=== PATIENT | male | born 1955 | race Caucasian/White ===

== ENCOUNTER 2017-08-19 20:32 | Inpatient (IN) | payer MEDICARE, OTHER ==
[~2017-08-19] VITALS: Ht 180.3 cm; Wt 76.2 kg
--- NOTE | 2017-08-19 20:46 | NUR ---
Patient BIB private ambulance from [facility] for Medical Clearance and GPS Admission. Patient arrives on 5150 hold for DTS. Per hold, Patient has been laying in bed for approximately 2 weeks without eating and has reportedly lost 34 lbs. Patient states that he gets depressed around the holidays due to previous loss of family members. To room 3A, BLANKA performed MSE.
[2017-08-19] MEDS ORDERED: DIVA500T7 PO (20:51)
[2017-08-19] MEDS ORDERED: CLON1TAB4 PO (20:51)
[2017-08-19] MEDS ORDERED: IBUP-1955 PO (20:51)
[2017-08-19] MEDS ORDERED: BUSP10TA3 PO (20:51)
[2017-08-19] MEDS ORDERED: CIPR-262 PO (20:51)
[2017-08-19] MEDS ORDERED: POTA-88 PO (20:54)
[2017-08-19] MEDS ORDERED: OMEP20TA5 PO (20:54)
[2017-08-19] MEDS ORDERED: PROP20TA7 PO (20:54)
[2017-08-19] MEDS ORDERED: METF500T4 PO (20:54)
[2017-08-19] MEDS ORDERED: SIMV10TA6 PO (20:54)
[2017-08-19] MEDS ORDERED: QUET400T3 PO (20:54)
[2017-08-19] MEDS ORDERED: TOPI100T PO (20:54)
--- NOTE | 2017-08-19 21:08 | NUR ---
Patient Medically Cleared per ERMD.
--- NOTE | 2017-08-19 21:17 | NUR ---
Pt. admitted to GPS, under care of Dr. Valenzuela Belongs List completed
[2017-08-19] MEDS ORDERED: MAGNESIUM HYDROXIDE 30 ML LIQUID UDC PO PRN (22:15)
[2017-08-19] MEDS ORDERED: MAG HYDROX/AL HYDROX/SIMETH 30 ML LIQUID UDC PO PRN (22:15)
[2017-08-19] MEDS ORDERED: CLONAZEPAM 0.5 MG TABLET PO PRN (22:15)
[2017-08-19] MEDS ORDERED: TEMAZEPAM 7.5 MG CAPSULE PO PRN (22:15)
--- NOTE | 2017-08-20 00:09 | NUR ---
PATIENT RECEIVED FROM ER VIA [facility] AT 2130. PATIENT ALERT/ORIENTED X 2-3. PATIENT HAS FLAT AFFECT, DEPRESSED, AND ANXIOUS. PATIENT IS WILLING AND WANTING HELP "THANK YOU SOPHIE FOR TAKING ME, I NEED HELP. I GET DEPRESSED THIS TIME EVERY YEAR, FOR THE PAST 3 YEARS SINCE MY MOTHER AND SISTER ." PATIENT HAS BEEN IN BED FOR 2 WEEKS NOT EATING. PATIENT STATED LOSING 30LBS. ACCUCHECK RENDERED 95MG/DL PATIENT ATE TUNA SANDWICH AND BOTTLE WATER. SKIN CHECK RENDERED, SKIN INTACT. PATIENT AMBULATES, HOWEVER IS WEAK WITH UNSTEADY GAIT, PT ORDERED. CONTINENT OF BOWEL AND BLADDER. ORIENTED PATIENT TO ROOM AND RESTROOM, REQUIRES RE-ORIENTATION. PATIENT ABLE TO SIGN ADMISSION PAPERS. PATIENT RIGHT'S HANDBOOK AND ADVISEMENT GIVEN TO PATIENT AT BEDSIDE. BED IN LOWEST POSITION, BED LOCKED, AND BED ALARM ON WHILE IN BED. PATIENT ENCOURAGED TO EXPRESS FEELINGS AND CONCERNS. ENCOURAGED TO ATTEND GROUP ACTIVITIES "YES, I AGREE." DR. SIMENTAL NOTIFIED OF ADMISSION, AND NOTIFIED OF ADMISSION.
[2017-08-20 07:30] VITALS: BP 106/57
[2017-08-20 07:59] LABS: BASOPHILS % (AUTO) 0.6 % (0.0-2.0); EOSINOPHILS # (AUTO) 0.1 K/uL (0.0-0.7); EOSINOPHILS % (AUTO) 2.3 % (0.0-7.0); HEMATOCRIT 36.5 % (40-50); HEMOGLOBIN 12.5 G/DL (14.0-18.0); LYMPHOCYTES # (AUTO) 1.3 K/UL (0.8-4.8); LYMPHOCYTES % (AUTO) 25.9 % (20.5-51.5); MEAN CORPUSCULAR HEMOGLOBIN 33.5 UUG (27.0-31.0); MEAN CORPUSCULAR HGB CONC 34 g/dL (32.0-37.0); MEAN CORPUSCULAR VOLUME 97.6 FL (82.0-92.0); MONOCYTES # (AUTO) 0.5 K/UL (0.1-1.30); MONOCYTES % (AUTO) 9.5 % (0.0-11.0); NEUTROPHILS # (AUTO) 3.1 K/UL (1.8-8.9); NEUTROPHILS % (AUTO) 61.7 % (38.5-71.5); PLATELET COUNT (AUTO) 237 K/UL (150-450); RED BLOOD CELL COUNT(AUTO) 3.73 MIL/UL (4.7-6.1)
[2017-08-20 08:41] LABS: BILIRUBIN,TOTAL 0.3 mg/dL (0.2-1.0); CREATININE 1.1 mg/dL (0.6-1.3); MAGNESIUM 1.8 mg/dL (1.8-2.4); PHOSPHOROUS 3.3 mg/dL (2.5-4.9); POTASSIUM 3.4 mmol/L (3.5-5.1); TOTAL PROTEIN, SERUM 8.1 g/dL (6.4-8.2)
[2017-08-20 08:46] LABS: THYROID STIMULATING HORMONE 1.916 mIU/mL (0.358-3.740)
[2017-08-20] MEDS: METFORMIN HCL 500 MG TABLET PO SCH ×2 (08:54→17:08)
[2017-08-20] MEDS ORDERED: DIVALPROEX 500 MG TABLET.DR PO SCH (09:00)
[2017-08-20] MEDS ORDERED: POTASSIUM CHLORIDE 20 MEQ TAB.PRT.SR PO ONE (09:30)
--- NOTE | 2017-08-20 10:07 | NUR ---
Enterprise Sales Executive: OLI completed and submitted [employer] Report on 08/20/17.
[2017-08-20] MEDS: BLOOD SUGAR DIAGNOSTIC 1 EACH STRIP VI SCH (16:28)
[2017-08-20] MEDS: QUETIAPINE FUMARATE 200 MG TABLET PO SCH (16:30)
[2017-08-20] MEDS: DIVALPROEX 500 MG TABLET.DR PO SCH (16:30)
[2017-08-20 17:18] VITALS: BP 108/76
[2017-08-20] MEDS: PROPRANOLOL HCL 20 MG TABLET PO SCH (20:24)
[2017-08-20] MEDS: SIMVASTATIN 10 MG TABLET PO SCH (20:25)
[2017-08-20] MEDS: TOPIRAMATE 100 MG TABLET PO SCH (20:26)
[2017-08-20] MEDS ORDERED: TOPIRAMATE 100 MG TABLET PO SCH (21:00)
[2017-08-20 21:22] VITALS: BP 104/78
--- NOTE | 2017-08-20 22:00 | NUR ---
received to care, watching tv with peers, pleasant upon approach. interacts minimally with peers. able to make his needs known. compliant with medications and staff direction. denies SI, but admits to feeling depressed. as of 2199, he appears to be asleep. no distress noted. will continue to monitor closely.
--- NOTE | 2017-08-21 06:00 | NUR ---
slept 7.5 hours total.
[2017-08-21] MEDS: BLOOD SUGAR DIAGNOSTIC 1 EACH STRIP VI SCH ×2 (06:25→16:39)
[2017-08-21 07:45] VITALS: BP 98/57
[2017-08-21 08:16] LABS: IRON, SERUM 61 ug/dL (50-175)
[2017-08-21] MEDS: DIVALPROEX 500 MG TABLET.DR PO SCH ×3 (08:35→16:39)
[2017-08-21] MEDS: QUETIAPINE FUMARATE 200 MG TABLET PO SCH ×2 (08:35→16:39)
[2017-08-21] MEDS: TOPIRAMATE 100 MG TABLET PO SCH ×2 (08:35→20:06)
[2017-08-21] MEDS: METFORMIN HCL 500 MG TABLET PO SCH ×2 (08:35→17:00)
[2017-08-21 12:05] LABS: *BLOOD, URINE NEGATIVE (NEGATIVE); *COLOR,URINE YELLOW (YELLOW); *KETONES,URINE TRACE (NEGATIVE); *PROTEIN,URINE TRACE (NEGATIVE); LEUKOCYTE ESTERASE ,URINE TRACE (NEGATIVE); NITRITE, URINE NEGATIVE (NEGATIVE); UGLUCOSE NEGATIVE (NEGATIVE)
--- NOTE | 2017-08-21 13:47 | NUR ---
Initial Discharge Instructions: Pt resides at home alone [[address] [place] [address];[phone]]. Per pt he would like to return there upon discharge. Spoke with Rosemarie at Support Services who would like to be involved in treatment planning. SW will speak with pt, disease case manager, and MD regarding appropriate discharge plans. SW will form a safe and proper discharge.
[2017-08-21 13:50] LABS: *BILIRUBIN,URIN 1+ (NEGATIVE); *CLARITY,URINE HAZY (CLEAR)
[2017-08-21 13:51] LABS: BACTERIA,URINE NONE SEEN /HPF (NONE SEEN); SQUAMOUS EPITHELIAL CELL,UR FEW /HPF (NONE SEEN); WBC,URINE 20-50 /HPF (0-3)
[2017-08-21 13:52] LABS: MUCUS,URINE MODERATE /LPF (0-FEW); SPERM,URINE PRESENT /HPF (NONE SEEN)
[2017-08-21 16:14] VITALS: BP 94/67
[2017-08-21] MEDS: busPIRone 10 MG TABLET PO SCH ×2 (16:39→20:06)
--- NOTE | 2017-08-21 17:07 | NUR ---
UA RESULT RELAY TO DR. MAHER.
[2017-08-21] MEDS: ACETAMINOPHEN 325 MG TABLET PO PRN (20:05)
[2017-08-21] MEDS: NITROFURANTOIN/NITROFURAN MAC 100 MG CAPSULE PO SCH (20:07)
[2017-08-21] MEDS: SIMVASTATIN 10 MG TABLET PO SCH (20:09)
[2017-08-21] MEDS: PROPRANOLOL HCL 20 MG TABLET PO SCH (20:12)
[2017-08-21 20:15] VITALS: BP 92/63
[2017-08-22] MEDS: BLOOD SUGAR DIAGNOSTIC 1 EACH STRIP VI SCH ×2 (06:45→16:35)
[2017-08-22 07:30] VITALS: BP 104/69
[2017-08-22] MEDS: QUETIAPINE FUMARATE 200 MG TABLET PO SCH ×2 (08:21→17:17)
[2017-08-22] MEDS: TOPIRAMATE 100 MG TABLET PO SCH ×2 (08:21→20:42)
[2017-08-22] MEDS: METFORMIN HCL 500 MG TABLET PO SCH ×2 (08:21→17:17)
[2017-08-22] MEDS: NITROFURANTOIN/NITROFURAN MAC 100 MG CAPSULE PO SCH ×2 (08:22→20:42)
[2017-08-22] MEDS: DIVALPROEX 500 MG TABLET.DR PO SCH ×3 (08:22→17:16)
[2017-08-22] MEDS: busPIRone 10 MG TABLET PO SCH ×4 (08:22→20:42)
[2017-08-22 13:00] VITALS: BP 96/68
[2017-08-22] MEDS: ACETAMINOPHEN 325 MG TABLET PO PRN (19:57)
[2017-08-22 20:27] VITALS: BP 101/68
[2017-08-22] MEDS: SIMVASTATIN 10 MG TABLET PO SCH (20:42)
[2017-08-22] MEDS: PROPRANOLOL HCL 20 MG TABLET PO SCH (20:52)
--- NOTE | 2017-08-23 06:00 | NUR ---
slept 7.0 hours total.
[2017-08-23 07:30] VITALS: BP 109/68
[2017-08-23] MEDS: NITROFURANTOIN/NITROFURAN MAC 100 MG CAPSULE PO SCH ×2 (08:11→20:54)
[2017-08-23] MEDS: TOPIRAMATE 100 MG TABLET PO SCH ×2 (08:11→20:54)
[2017-08-23] MEDS: DIVALPROEX 500 MG TABLET.DR PO SCH ×3 (08:11→16:28)
[2017-08-23] MEDS: QUETIAPINE FUMARATE 200 MG TABLET PO SCH ×2 (08:11→16:28)
[2017-08-23] MEDS: busPIRone 10 MG TABLET PO SCH ×4 (08:11→20:54)
[2017-08-23] MEDS: METFORMIN HCL 500 MG TABLET PO SCH (09:15)
[2017-08-23 15:22] VITALS: BP 80/55
--- NOTE | 2017-08-23 17:45 | NUR ---
Gps/Dynamic Balancer- Stayed in the TV room most of the afternoon, interacting with his peers.Cooperative with staff providing care.
[2017-08-23] MEDS: SIMVASTATIN 10 MG TABLET PO SCH (20:54)
[2017-08-24 07:30] VITALS: BP 97/69
[2017-08-24] MEDS: QUETIAPINE FUMARATE 200 MG TABLET PO SCH ×2 (08:07→16:21)
[2017-08-24] MEDS: NITROFURANTOIN/NITROFURAN MAC 100 MG CAPSULE PO SCH (08:07)
[2017-08-24] MEDS: METFORMIN HCL 500 MG TABLET PO SCH (08:07)
[2017-08-24] MEDS: DIVALPROEX 500 MG TABLET.DR PO SCH ×3 (08:07→16:21)
[2017-08-24] MEDS: TOPIRAMATE 100 MG TABLET PO SCH ×2 (08:07→20:35)
[2017-08-24] MEDS: busPIRone 10 MG TABLET PO SCH ×4 (08:08→20:35)
[2017-08-24 15:00] VITALS: BP 106/79
[2017-08-24 20:22] VITALS: BP 99/70
[2017-08-24] MEDS: SIMVASTATIN 10 MG TABLET PO SCH (20:34)
[2017-08-24] MEDS: ACETAMINOPHEN 325 MG TABLET PO PRN (20:55)
[2017-08-25 07:30] VITALS: BP 114/74
[2017-08-25] MEDS: DIVALPROEX 500 MG TABLET.DR PO SCH ×3 (08:10→18:37)
[2017-08-25] MEDS: METFORMIN HCL 500 MG TABLET PO SCH (08:10)
[2017-08-25] MEDS: QUETIAPINE FUMARATE 200 MG TABLET PO SCH ×2 (08:10→18:35)
[2017-08-25] MEDS: busPIRone 10 MG TABLET PO SCH ×4 (08:10→20:11)
[2017-08-25] MEDS: TOPIRAMATE 100 MG TABLET PO SCH ×2 (08:10→20:11)
[2017-08-25 08:17] LABS: BASOPHILS % (AUTO) 0.8 % (0.0-2.0); EOSINOPHILS # (AUTO) 0.1 K/uL (0.0-0.7); HEMATOCRIT 30.1 % (40-50); HEMOGLOBIN 10.1 G/DL (14.0-18.0); LYMPHOCYTES # (AUTO) 1.6 K/UL (0.8-4.8); LYMPHOCYTES % (AUTO) 45.6 % (20.5-51.5); MEAN CORPUSCULAR HEMOGLOBIN 33.4 UUG (27.0-31.0); MEAN CORPUSCULAR HGB CONC 34 g/dL (32.0-37.0); MEAN CORPUSCULAR VOLUME 99.3 FL (82.0-92.0); MONOCYTES # (AUTO) 0.4 K/UL (0.1-1.30); MONOCYTES % (AUTO) 12.9 % (0.0-11.0); NEUTROPHILS # (AUTO) 1.3 K/UL (1.8-8.9); NEUTROPHILS % (AUTO) 37.7 % (38.5-71.5); PLATELET COUNT (AUTO) 153 K/UL (150-450); RED BLOOD CELL COUNT(AUTO) 3.03 MIL/UL (4.7-6.1); WHITE BLOOD COUNT (AUTO) 3.4 K/UL (4.0-11.2)
[2017-08-25 08:40] LABS: ALANINE AMINOTRANSFERASE 10 U/L (16-63); ALKALINE PHOSPHATASE 42 U/L (50-136); ASPARTATE AMINOTRANSFERASE < 5 U/L (15-37); BILIRUBIN,TOTAL 0.3 mg/dL (0.2-1.0); CARBON DIOXIDE 23 mmol/L (21-32); CHLORIDE 108 mmol/L (98-107); GLUCOSE 84 mg/dL (74-106); MAGNESIUM 1.9 mg/dL (1.8-2.4); PHOSPHOROUS 2.9 mg/dL (2.5-4.9); POTASSIUM 3.2 mmol/L (3.5-5.1); TOTAL PROTEIN, SERUM 6.7 g/dL (6.4-8.2); UREA NITROGEN, BLOOD 27 mg/dL (7-18)
[2017-08-25] MEDS ORDERED: POTASSIUM CHLORIDE 20 MEQ TAB.PRT.SR PO ONE (10:30)
[2017-08-25 10:38] LABS: EOSINOPHILS % (MANUAL) 3 % (0-8); LYMPHOCYTES % (MANUAL) 44 % (20-40); MONOCYTES % (MANUAL) 10 % (2-10); NEUTROPHILS % (MANUAL) 43 % (42-75)
[2017-08-25 10:55] LABS: IRON, SERUM 116 ug/dL (50-175)
--- NOTE | 2017-08-25 15:46 | NUR ---
Gps/Substation Operator Apprentice- B/P / HR 88, patient remains in the TV room, denies any dizziness,adequate fluids, refused to go to bed to rest, claimed he is doing just fine sitting up.Safety emphasized, continue to monitor.
--- NOTE | 2017-08-25 17:00 | NUR ---
gps/locomotive oiler- B/P rechecked HR 83 02 sat 96% on room air, asymtomatic, patient denies any dizziness, denies weakness, preferred to stay up on his chair till after dinner. Adequate fluid intake. Refused to go to bed, and have his legs elevated.Will continue to monitor b/p
--- NOTE | 2017-08-25 18:27 | NUR ---
gps/Industrial Recruiter- B/p rechecked 98/74 HR 85 RA.02 sat 96% denies any discomfort.Will continue to assess v/s
[2017-08-25 18:28] VITALS: BP 98/74
[2017-08-25 20:08] VITALS: BP 127/83
[2017-08-25] MEDS: SIMVASTATIN 10 MG TABLET PO SCH (20:11)
[2017-08-25] MEDS: ACETAMINOPHEN 325 MG TABLET PO PRN (20:26)
[2017-08-26] MEDS: BLOOD SUGAR DIAGNOSTIC 1 EACH STRIP VI SCH (06:22)
[2017-08-26 07:30] VITALS: BP 101/67
[2017-08-26] MEDS: METFORMIN HCL 500 MG TABLET PO SCH (09:13)
[2017-08-26] MEDS: busPIRone 10 MG TABLET PO SCH ×4 (09:13→20:40)
[2017-08-26] MEDS: QUETIAPINE FUMARATE 200 MG TABLET PO SCH ×2 (09:13→16:52)
[2017-08-26] MEDS: DIVALPROEX 500 MG TABLET.DR PO SCH ×3 (09:13→16:52)
[2017-08-26] MEDS: TOPIRAMATE 100 MG TABLET PO SCH ×2 (09:13→20:40)
[2017-08-26 15:27] VITALS: BP 90/69
--- NOTE | 2017-08-26 17:25 | NUR ---
Gpg/Eyelet Row Marker- Remains in the TV room interacting fairly well with his peers. Denies any discomfort at this time.had been mediciation compliance. Pedal edema still noted, encouraged to elevate lower ext. Pedal pulses palpable.Denies pain at this time.No BM noted, claimed he takes dulcolax tab. at home as needed, Dr Castellanos texted.
[2017-08-26] MEDS ORDERED: BISACODYL 5 MG TABLET.DR PO PRN (18:30)
[2017-08-26 20:19] VITALS: BP 92/69
[2017-08-26 20:35] VITALS: BP 105/68
[2017-08-26] MEDS: SIMVASTATIN 10 MG TABLET PO SCH (20:40)
[2017-08-27] MEDS: BLOOD SUGAR DIAGNOSTIC 1 EACH STRIP VI SCH (06:39)
--- NOTE | 2017-08-27 06:50 | NUR ---
GPS: REMAIN CALM AND COOERATIVE WITH MEDICATION AND CARE. SLEPT 06:30HRS THROUGH THE NIGHT. BLOOD SUGAR 82 MG/DL THIS AM. CONTINUE PLAN OF CARE.
[2017-08-27 07:30] VITALS: BP 120/76
[2017-08-27] MEDS: QUETIAPINE FUMARATE 200 MG TABLET PO SCH ×2 (09:12→17:14)
[2017-08-27] MEDS: METFORMIN HCL 500 MG TABLET PO SCH (09:12)
[2017-08-27] MEDS: busPIRone 10 MG TABLET PO SCH ×4 (09:12→20:19)
[2017-08-27] MEDS: DIVALPROEX 500 MG TABLET.DR PO SCH ×3 (09:12→17:14)
[2017-08-27] MEDS: TOPIRAMATE 100 MG TABLET PO SCH ×2 (09:12→20:19)
--- NOTE | 2017-08-27 09:30 | NUR ---
Pt received sitting in day room eating breakfast. Pt denies any SI/HI at this time. Cooperative and compliant with medications. Depressed mood. Comfort measures provided.
--- NOTE | 2017-08-27 14:45 | NUR ---
Patient spending most of time in day room watching TV. Pleasant upon approach. compliant with medications. No acute distress noted.
[2017-08-27] MEDS ORDERED: QUETIAPINE FUMARATE 200 MG TABLET PO SCH (17:00)
[2017-08-27 17:13] VITALS: BP 115/68
[2017-08-27] MEDS: QUETIAPINE FUMARATE 25 MG TABLET PO SCH (17:14)
[2017-08-27] MEDS: SIMVASTATIN 10 MG TABLET PO SCH (20:19)
[2017-08-27 20:28] VITALS: BP 116/74
--- NOTE | 2017-08-27 22:01 | NUR ---
PATIENT RECEIVED IN ACTIVITIES ROOM WATCHING T.V INTERACTING WITH STAFF AND PEERS. PATIENT CALM AND PLEASANT UPON APPROACH. PATIENT DENIES SI WILL CONTINUE TO MONITOR, ENCOURAGED PATIENT TO EXPRESS FEELINGS AND CONCERNS. PATIENT COMPLAINT WITH MEDICATION. NO AGGRESSIVE OR COMBATIVE BEHAVIOR NOTED WILL CONTINUE TO MONITOR. PATIENT IN NO APPARENT DISTRESS.
[2017-08-28] MEDS: BLOOD SUGAR DIAGNOSTIC 1 EACH STRIP VI SCH (06:33)
[2017-08-28 07:30] VITALS: BP 110/75
[2017-08-28] MEDS: QUETIAPINE FUMARATE 200 MG TABLET PO SCH ×2 (08:36→17:59)
[2017-08-28] MEDS: QUETIAPINE FUMARATE 25 MG TABLET PO SCH ×2 (08:36→17:58)
[2017-08-28] MEDS: busPIRone 10 MG TABLET PO SCH ×4 (08:36→20:04)
[2017-08-28] MEDS: DIVALPROEX 500 MG TABLET.DR PO SCH ×3 (08:36→17:59)
[2017-08-28] MEDS: METFORMIN HCL 500 MG TABLET PO SCH (08:36)
[2017-08-28] MEDS: TOPIRAMATE 100 MG TABLET PO SCH ×2 (08:36→20:04)
[2017-08-28 15:42] VITALS: BP 91/62
[2017-08-28 19:52] VITALS: BP_SYST 119; BP_SYST 94; BP_DIAS 65; BP_DIAS 81
[2017-08-28] MEDS: ACETAMINOPHEN 325 MG TABLET PO PRN (19:54)
[2017-08-28] MEDS: SIMVASTATIN 10 MG TABLET PO SCH (20:04)
[2017-08-28] MEDS ORDERED: DIVALPROEX 250 MG TABLET.DR PO ONE (22:15)
[2017-08-29] MEDS: BLOOD SUGAR DIAGNOSTIC 1 EACH STRIP VI SCH (06:27)
[2017-08-29 07:02] LABS: CREATININE 1.1 mg/dL (0.6-1.3); POTASSIUM 3.9 mmol/L (3.5-5.1)
[2017-08-29 07:30] VITALS: BP 113/72
[2017-08-29 07:48] LABS: EOSINOPHILS # (AUTO) 0.1 K/uL (0.0-0.7); EOSINOPHILS % (AUTO) 2.5 % (0.0-7.0); HEMOGLOBIN 10.7 g/dL (12.5-16.3); LYMPHOCYTES # (AUTO) 1.4 K/uL (20.0-40.0); LYMPHOCYTES % (AUTO) 41.1 % (20.5-51.5); MEAN CORPUSCULAR HEMOGLOBIN 34.5 uug (23.8-33.4); MEAN CORPUSCULAR HGB CONC 35 g/dL (32.5-36.3); MEAN CORPUSCULAR VOLUME 100.1 fL (73.0-96.2); MONOCYTES # (AUTO) 0.5 K/uL (2.0-10.0); MONOCYTES % (AUTO) 13.8 % (0.0-11.0); NEUTROPHILS # (AUTO) 1.4 K/uL (1.8-8.9); NEUTROPHILS % (AUTO) 41.6 % (38.5-71.5); PLATELET COUNT (AUTO) 150 K/uL (152-348); RED BLOOD CELL COUNT(AUTO) 3.09 MIL/uL (4.06-5.63); WHITE BLOOD COUNT (AUTO) 3.4 K/uL (3.6-10.2)
[2017-08-29] MEDS: QUETIAPINE FUMARATE 25 MG TABLET PO SCH (08:40)
[2017-08-29] MEDS: DIVALPROEX 500 MG TABLET.DR PO SCH ×2 (08:40→12:44)
[2017-08-29] MEDS: TOPIRAMATE 100 MG TABLET PO SCH ×2 (08:40→20:14)
[2017-08-29] MEDS: busPIRone 10 MG TABLET PO SCH ×4 (08:40→20:14)
[2017-08-29] MEDS: METFORMIN HCL 500 MG TABLET PO SCH (08:40)
[2017-08-29] MEDS: QUETIAPINE FUMARATE 200 MG TABLET PO SCH ×2 (08:40→20:14)
[2017-08-29 16:00] VITALS: BP 105/71
[2017-08-29] MEDS: QUETIAPINE FUMARATE 100 MG TABLET PO SCH (17:23)
[2017-08-29] MEDS: SIMVASTATIN 10 MG TABLET PO SCH (20:14)
[2017-08-29] MEDS: DIVALPROEX 250 MG TABLET.DR PO SCH (20:14)
[2017-08-29 20:20] VITALS: BP 111/71
[2017-08-30] MEDS: BLOOD SUGAR DIAGNOSTIC 1 EACH STRIP VI SCH (06:32)
[2017-08-30 07:30] VITALS: BP 116/83
[2017-08-30] MEDS ORDERED: QUETIAPINE FUMARATE 25 MG TABLET PO SCH (08:00)
[2017-08-30] MEDS: busPIRone 10 MG TABLET PO SCH ×4 (08:21→21:08)
[2017-08-30] MEDS: TOPIRAMATE 100 MG TABLET PO SCH ×2 (08:21→21:08)
[2017-08-30] MEDS: QUETIAPINE FUMARATE 100 MG TABLET PO SCH ×2 (08:21→16:59)
[2017-08-30] MEDS: DIVALPROEX 500 MG TABLET.DR PO SCH ×2 (08:23→12:24)
[2017-08-30] MEDS: METFORMIN HCL 500 MG TABLET PO SCH (08:23)
[2017-08-30 16:00] VITALS: BP 98/71
[2017-08-30] MEDS: SIMVASTATIN 10 MG TABLET PO SCH (21:08)
[2017-08-30] MEDS: DIVALPROEX 250 MG TABLET.DR PO SCH (21:08)
[2017-08-30] MEDS: QUETIAPINE FUMARATE 200 MG TABLET PO SCH (21:09)
[2017-08-30 21:27] VITALS: BP 110/74
[2017-08-31] MEDS: BLOOD SUGAR DIAGNOSTIC 1 EACH STRIP VI SCH (06:25)
[2017-08-31 07:30] VITALS: BP 126/79
[2017-08-31 07:38] LABS: BASOPHILS % (AUTO) 0.9 % (0.0-2.0); BILIRUBIN,TOTAL 0.4 mg/dL (0.2-1.0); EOSINOPHILS # (AUTO) 0.1 K/uL (0.0-0.7); EOSINOPHILS % (AUTO) 2.4 % (0.0-7.0); HEMATOCRIT 30.6 % (36.7-47.1); HEMOGLOBIN 10.5 g/dL (12.5-16.3); LYMPHOCYTES # (AUTO) 1.7 K/uL (20.0-40.0); LYMPHOCYTES % (AUTO) 43.9 % (20.5-51.5); MEAN CORPUSCULAR HEMOGLOBIN 34.4 uug (23.8-33.4); MEAN CORPUSCULAR HGB CONC 34 g/dL (32.5-36.3); MEAN CORPUSCULAR VOLUME 100.2 fL (73.0-96.2); MONOCYTES # (AUTO) 0.4 K/uL (2.0-10.0); MONOCYTES % (AUTO) 11.3 % (0.0-11.0); NEUTROPHILS # (AUTO) 1.6 K/uL (1.8-8.9); NEUTROPHILS % (AUTO) 41.5 % (38.5-71.5); PLATELET COUNT (AUTO) 149 K/uL (152-348); POTASSIUM 3.9 mmol/L (3.5-5.1); RED BLOOD CELL COUNT(AUTO) 3.05 MIL/uL (4.06-5.63); TOTAL PROTEIN, SERUM 6.7 g/dL (6.4-8.2); WHITE BLOOD COUNT (AUTO) 3.9 K/uL (3.6-10.2)
[2017-08-31] MEDS: TOPIRAMATE 100 MG TABLET PO SCH (08:18)
[2017-08-31] MEDS: busPIRone 10 MG TABLET PO SCH (08:18)
[2017-08-31] MEDS: QUETIAPINE FUMARATE 100 MG TABLET PO SCH (08:18)
[2017-08-31] MEDS: DIVALPROEX 500 MG TABLET.DR PO SCH (08:18)
[2017-08-31] MEDS: METFORMIN HCL 500 MG TABLET PO SCH (08:18)
--- NOTE | 2017-08-31 09:13 | NUR ---
DC Note: Patient will be discharged home [[address], [place] [address]; [phone]] via private transportation at 11am. Spoke with Rosemarie at the [facility] ([phone]) who states they are willing to provide transportation and are ready to accept the patient today. Per Rosemarie, patient will check in with his Ornament Stapler (Dorie Jimenes) at the facility [[address] [place] [address]] and then will be transported back home. Patient is aware and agreeable with discharge plans. Patient will follow-up with his Primary Care Physician Dr. Brumfield ([phone]) on September 03, 2017 at 8am, and was given outpatient psych referrals for Dr. Redd , Dr. Valenzuela [phone], and Dr. Abreu [phone].
--- NOTE | 2017-08-31 11:01 | NUR ---
Pt left unit accompanied by case preparer and liner and ASPHALT ROLLER PERSON to private vehicle. Pt remains pleasant, able to verbalize all needs. Denies pain or discomfort. Denies suicidal and homicidal ideations. Left with all noted belongings and paperwork. V/S stable. In no acute distress.
== END 2017-08-31 11:00 | disposition home or self-care (01) | DRG 885 ==
LOC: ER 20:35 → GPS 21:18
PROVIDERS: ADMIT Psychiatry & Neurology Psychiatry; ATTEND Internal Medicine
DX: F31.60 Bipolar disorder, current episode mixed, unspecified (principal); N17.0 Acute kidney failure with tubular necrosis; E44.0 Moderate protein-calorie malnutrition; E11.9 Type 2 diabetes mellitus without complications; E67.8 Other specified hyperalimentation; D53.9 Nutritional anemia, unspecified; D72.819 Decreased white blood cell count, unspecified; N39.0 Urinary tract infection, site not specified; E86.0 Dehydration; E87.6 Hypokalemia; I10 Essential (primary) hypertension; K21.9 Gastro-esophageal reflux disease without esophagitis; F41.9 Anxiety disorder, unspecified; Z68.23 Body mass index [BMI] 23.0-23.9, adult; Z79.84 Long term (current) use of oral hypoglycemic drugs; K64.9 Unspecified hemorrhoids; Z79.899 Other long term (current) drug therapy
CPT/HCPCS: 36415; 70030-TC; 71010; 80164; 82746; 83550; 83735; 84100; 84443; 85025; 87086; 93005; A4663; J3490

== ENCOUNTER 2018-05-11 00:19 | Inpatient (IN) | payer MEDICARE, OTHER ==
[~2018-05-11] VITALS: Ht 177.8 cm; Wt 74.4 kg
[~2018-05-11 00:19] MED LIST: BUSP10TA3 PO; CIPR-262 PO; CLON1TAB5 PO; DIVA-78 PO; IBUP-1955 PO; METF500T6 PO; OMEP20TA5 PO; POTA-88 PO; PROP20TA7 PO; SIMV10TA6 PO; TOPI100T PO
[2018-05-11] MEDS ORDERED: BUSP15TA3 PO (02:18)
[2018-05-11] MEDS ORDERED: METF500T PO (02:18)
[2018-05-11] MEDS ORDERED: NICO2GUM9 BC (02:18)
[2018-05-11] MEDS ORDERED: QUET50TA PO (02:18)
[2018-05-11] MEDS ORDERED: PROP40TA7 PO (02:18)
[2018-05-11] MEDS ORDERED: QUET25TA PO (02:18)
[2018-05-11] MEDS ORDERED: MAG-55 PO (02:18)
[2018-05-11] MEDS ORDERED: SIMV10TA2 PO (02:18)
[2018-05-11] MEDS ORDERED: IBUP-1953 PO (02:18)
[2018-05-11] MEDS ORDERED: FOLI1TAB16 PO (02:18)
[2018-05-11] MEDS ORDERED: LORA0.5T PO (02:18)
[2018-05-11] MEDS ORDERED: DIVA-78 PO (02:18)
[2018-05-11] MEDS ORDERED: CYAN10009 PO (02:18)
[2018-05-11] MEDS ORDERED: GLUC1VIA4 IJ (02:18)
[2018-05-11] MEDS ORDERED: PANT40TA4 PO (02:18)
[2018-05-11] MEDS ORDERED: ACET-2154 PO (02:18)
--- NOTE | 2018-05-11 03:52 | NUR ---
Pt. admitted to MHU , under care of Dr. Garza/Jonas HARDWOOD FLOOR INSTALLER Belongs List completed. MRSA swab done. All belongings with pt. VSS. Report given to Rubi SAVAGE.
[2018-05-11] MEDS ORDERED: MAG HYDROX/AL HYDROX/SIMETH 30 ML LIQUID UDC PO PRN (04:30)
[2018-05-11] MEDS ORDERED: ACETAMINOPHEN 325 MG TABLET PO PRN (04:30)
[2018-05-11] MEDS ORDERED: MAGNESIUM HYDROXIDE 30 ML LIQUID UDC PO PRN (04:30)
--- NOTE | 2018-05-11 05:00 | NUR ---
AT APPROX 0415, ADMITTED 62 YEAR OLD MALE FROM [facility] TO [facility] ON A 5150 FOR DTS. PATIENT LIVES IN AN APARTMENT ALONE IN [facility]. PER HOLD PATIENT STATED THAT HE WAS HAVING SI WITH A PLAN TO SLICED HIS WRIST. HOLD WILL END ON 05/13/18 AT 1756. PATIENT NOTED A/O X 3 AMBULATORY. ABLE TO MAKE HIS NEEDS KNOWN. AT TIME OF ADMISSION, PATIENT WAS CALM AND COOPERATIVE. STATES THAT SI COMES AND GO, BUT HE WAS ABLE TO CFS. SKIN NOTED WARM, MOIST AND INTACT. PATIENT IS UNDER THE CARE OF DR. ROSALES. WILL CONTINUE TO MONITOR CLOSELY.
[2018-05-11 07:14] VITALS: BP 102/72
[2018-05-11 07:30] VITALS: BP 117/82
[2018-05-11 10:58] LABS: THYROID STIMULATING HORMONE 4.737 mIU/mL (0.358-3.740)
[2018-05-11 11:47] LABS: BILIRUBIN,TOTAL 0.3 mg/dL (0.2-1.0); MAGNESIUM 1.4 mg/dL (1.8-2.4); POTASSIUM 4.1 mmol/L (3.5-5.1); TOTAL PROTEIN, SERUM 6.5 g/dL (6.4-8.2)
[2018-05-11] MEDS: NICOTINE 14 MG/24HR PATCH TD SCH (12:45)
[2018-05-11] MEDS ORDERED: MAGNESIUM OXIDE 400 MG TABLET PO ONE (13:00)
[2018-05-11] MEDS ORDERED: IBUPROFEN 400 MG TABLET PO PRN (13:00)
[2018-05-11] MEDS: DIVALPROEX ER 500 MG TAB.SR.24H PO SCH ×2 (13:39→21:42)
[2018-05-11 16:43] VITALS: BP 102/66
[2018-05-11 20:00] VITALS: BP 124/76
--- NOTE | 2018-05-11 20:00 | NUR ---
RECEIVED PATIENT IN THE DAY ROOM WATCHING TV AND INTERACTING WITH PEER AND ROOM MATE AND NURSING STAFF. HE IS NOTED A/O 3, HE IS ABLE TO AMBULATE WITH STEADY GAIT AND ABLE TO MAKE HIS NEEDS KNOWN. UPON INTERVIEW, HE IS NOTED PLEASANT AND COOPERATIVE. FAIR INSIGHT AND JUDGMENT NOTED TO THE REASON FOR HIS ADMISSION TO MHU. HE STATED, "I AM FEELING BETTER." HE ALSO SATED THAT HE IS HAVING LESS SUICIDAL THOUGHTS. HE IS ABLE TO CFS. PATIENT IS COMPLIANT WITH MEDICATION REGIMENT DIET AND PLAN OF CARE. SAFETY WAS EMPHASIS. HE IS ENCOURAGE TO VERBALIZE FEELINGS AND SEEK HELP IF ANY SI. SAFETY WAS EMPHASIS. WILL CONTINUE TO MONITOR CLOSELY.
[2018-05-11] MEDS: MAGNESIUM OXIDE 400 MG TABLET PO SCH (21:42)
[2018-05-11] MEDS: QUETIAPINE FUMARATE 100 MG TABLET PO SCH (21:42)
[2018-05-12 07:30] VITALS: BP 97/68
[2018-05-12] MEDS: PANTOPRAZOLE SODIUM 40 MG TABLET.DR PO SCH (07:41)
[2018-05-12] MEDS: DIVALPROEX ER 500 MG TAB.SR.24H PO SCH ×2 (08:14→20:23)
[2018-05-12] MEDS: NICOTINE 14 MG/24HR PATCH TD SCH (08:14)
[2018-05-12] MEDS: SERTRALINE HCL 50 MG TABLET PO SCH (08:14)
[2018-05-12 16:48] VITALS: BP 114/81
[2018-05-12 19:30] VITALS: BP 102/72
[2018-05-12] MEDS: MAGNESIUM OXIDE 400 MG TABLET PO SCH (20:23)
[2018-05-12] MEDS: QUETIAPINE FUMARATE 100 MG TABLET PO SCH (20:23)
[2018-05-13] MEDS: PANTOPRAZOLE SODIUM 40 MG TABLET.DR PO SCH (06:39)
[2018-05-13 07:30] VITALS: BP 129/73
[2018-05-13] MEDS: DIVALPROEX ER 500 MG TAB.SR.24H PO SCH ×2 (08:04→21:07)
[2018-05-13] MEDS: SERTRALINE HCL 50 MG TABLET PO SCH (08:04)
[2018-05-13] MEDS: NICOTINE 14 MG/24HR PATCH TD SCH (08:05)
--- NOTE | 2018-05-13 15:48 | NUR ---
Firearms Report: Iron Guardrail Installer completed and submitted [employer] report on 05/13/18 for 5150 Danger to Self certification.
[2018-05-13 16:06] VITALS: BP 115/63
[2018-05-13 19:30] VITALS: BP 111/75
[2018-05-13] MEDS: MAGNESIUM OXIDE 400 MG TABLET PO SCH (21:07)
[2018-05-13] MEDS: QUETIAPINE FUMARATE 100 MG TABLET PO SCH (21:07)
[2018-05-14] MEDS: ZOLPIDEM 5 MG TABLET PO PRN ×2 (01:46→23:28)
[2018-05-14] MEDS: PANTOPRAZOLE SODIUM 40 MG TABLET.DR PO SCH (06:04)
--- NOTE | 2018-05-14 06:26 | NUR ---
Pt SLEPT WELL THROUGHOUT THE NIGHT. Pt WAS WOKEN UP BY THE NOISES THAT THE ANOTHER Pt WAS MAKING, Pt REPORTED SLIGHT ANXIETY AND REQUESTED FOR ANTI-ANXIETY MED. NURSE INFORMED Pt THAT HE IS PRESCRIBED A SLEEPING MEDICATION WHICH HE CAN RECEIVE UNTIL 0200 BUT CAN NOT BE GIVEN WITH THE ANTI-ANXIETY PRN MED. Pt OPTED TO RECEIVE THE SLEEPING MED INSTEAD. ADMINISTERED AMBIEN 5 MG PO PRN FOR SLEEP WITH GOOD EFFECT. Pt WOKE UP THIS MORNING, COMPLIANT AND COOPERATIVE WITH MEDS AND CARE STAFF, DENIES PAIN, DENIES S/I, AGREES TO CFS, NO DISTRESS NOTED. Pt WENT BACK TO SLEEP AFTER TAKING MED.
[2018-05-14 07:30] VITALS: BP 124/82
[2018-05-14] MEDS: DIVALPROEX ER 500 MG TAB.SR.24H PO SCH ×2 (08:04→21:12)
[2018-05-14] MEDS: SERTRALINE HCL 50 MG TABLET PO SCH (08:04)
[2018-05-14] MEDS: NICOTINE 14 MG/24HR PATCH TD SCH (08:04)
--- NOTE | 2018-05-14 11:26 | NUR ---
Initial Discharge Instructions: Patient currently resides at home alone [[address] [place] [address]; [phone]]. Per pt, he would like to return home upon discharge. Spoke with Ebony at [facility] ([phone]) who states they will continue to provide services to the patient once he is stable for discharge. OLI will continue to collaborate with pt, manager of case management, and MD regarding most appropriate discharge plans. SW will form a safe and proper discharge plan.
[2018-05-14 16:31] VITALS: BP 110/76
[2018-05-14 20:13] VITALS: BP 149/87
--- NOTE | 2018-05-14 21:00 | NUR ---
PT RECEIVED TO CARE IN THE DAY ROOM, A/O X3, INTERACTS WELL WITH SELECTED PEERS, INTERACTS WITH STAFF WHEN STAFF INITIATES THE CONVERSATION, DENIES SI/HI/PAIN, MOOD SOMEWHAT FLAT AND DEPRESSED, PT IS MED COMPLIANT, ABLE TO MAKE NEEDS KNOWN, CONTINUE TO MONITOR CLOSELY.
[2018-05-14] MEDS: QUETIAPINE FUMARATE 100 MG TABLET PO SCH (21:12)
[2018-05-14] MEDS: MAGNESIUM OXIDE 400 MG TABLET PO SCH (21:12)
[2018-05-15] MEDS: PANTOPRAZOLE SODIUM 40 MG TABLET.DR PO SCH (07:08)
[2018-05-15] MEDS: LORAZEPAM 1 MG TABLET PO PRN (07:08)
[2018-05-15 07:30] VITALS: BP 112/81
[2018-05-15] MEDS: NICOTINE 14 MG/24HR PATCH TD SCH ×2 (09:00→09:50)
[2018-05-15] MEDS: DIVALPROEX ER 500 MG TAB.SR.24H PO SCH ×2 (09:50→20:48)
[2018-05-15] MEDS: QUETIAPINE FUMARATE 25 MG TABLET PO SCH (09:50)
[2018-05-15 15:48] VITALS: BP 108/71
[2018-05-15 19:30] VITALS: BP 120/78
[2018-05-15] MEDS: MAGNESIUM OXIDE 400 MG TABLET PO SCH (20:48)
[2018-05-15] MEDS: QUETIAPINE FUMARATE 100 MG TABLET PO SCH (20:48)
--- NOTE | 2018-05-15 21:20 | NUR ---
Pt received to care in the Day room, pleasant upon approach, socializes well with selected peers, passively stating SI, saying he still has thoughts of slashing his wrist, but does contract for safety while he is hospitalized. He says if his anxiety is controlled, the thoughts of SI will probably go away. Pt is able to make needs know, continue to monitor closely for safety.
[2018-05-16] MEDS: PANTOPRAZOLE SODIUM 40 MG TABLET.DR PO SCH (06:25)
[2018-05-16 07:30] VITALS: BP 120/70
[2018-05-16] MEDS: QUETIAPINE FUMARATE 25 MG TABLET PO SCH (08:39)
[2018-05-16] MEDS: DIVALPROEX ER 500 MG TAB.SR.24H PO SCH ×2 (08:39→20:42)
[2018-05-16] MEDS: SERTRALINE HCL 50 MG TABLET PO SCH (08:39)
[2018-05-16] MEDS: NICOTINE 14 MG/24HR PATCH TD SCH ×2 (08:41→08:53)
[2018-05-16] MEDS: LORAZEPAM 1 MG TABLET PO PRN (10:56)
[2018-05-16 15:14] VITALS: BP 116/69
[2018-05-16 20:00] VITALS: BP 111/71
[2018-05-16] MEDS: QUETIAPINE FUMARATE 100 MG TABLET PO SCH (20:42)
[2018-05-16] MEDS: MAGNESIUM OXIDE 400 MG TABLET PO SCH (20:43)
[2018-05-17] MEDS: LORAZEPAM 1 MG TABLET PO PRN (07:03)
[2018-05-17] MEDS: PANTOPRAZOLE SODIUM 40 MG TABLET.DR PO SCH (07:03)
[2018-05-17 08:00] VITALS: BP 112/70
[2018-05-17] MEDS: SERTRALINE HCL 50 MG TABLET PO SCH (08:46)
[2018-05-17] MEDS: DIVALPROEX ER 500 MG TAB.SR.24H PO SCH ×2 (08:46→20:24)
[2018-05-17] MEDS: QUETIAPINE FUMARATE 25 MG TABLET PO SCH (08:47)
[2018-05-17 16:31] VITALS: BP 101/65
[2018-05-17] MEDS: QUETIAPINE FUMARATE 100 MG TABLET PO SCH (20:24)
[2018-05-17] MEDS: MAGNESIUM OXIDE 400 MG TABLET PO SCH (20:24)
[2018-05-17 20:38] VITALS: BP 118/78
[2018-05-18] MEDS: PANTOPRAZOLE SODIUM 40 MG TABLET.DR PO SCH (06:32)
[2018-05-18] MEDS: LORAZEPAM 1 MG TABLET PO PRN (06:38)
[2018-05-18 07:30] VITALS: BP 113/76
[2018-05-18] MEDS: QUETIAPINE FUMARATE 25 MG TABLET PO SCH (10:02)
[2018-05-18] MEDS: DIVALPROEX ER 500 MG TAB.SR.24H PO SCH ×2 (10:02→21:26)
[2018-05-18] MEDS: SERTRALINE HCL 50 MG TABLET PO SCH (10:03)
--- NOTE | 2018-05-18 14:27 | NUR ---
Patient denies pain and discomfort. Ate his breakfast and lunch. cmpliant with his medical care/meds and diet. No SI, hallucination and delusions noted. Ambulates with steady gait. will monitor.
[2018-05-18 15:21] VITALS: BP 96/68
--- NOTE | 2018-05-18 17:52 | NUR ---
Patient ate his dinner. No SI or agitation noted. will monitor.
[2018-05-18] MEDS: MAGNESIUM OXIDE 400 MG TABLET PO SCH (21:26)
[2018-05-18] MEDS: QUETIAPINE FUMARATE 100 MG TABLET PO SCH (21:26)
[2018-05-18 21:27] VITALS: BP 122/68
--- NOTE | 2018-05-18 22:54 | NUR ---
RECEIVED RESIDENT IN ACTIVITY ROOM AND INTERACTING WITH PEERS. PLEASANT UPON APPROACH AND COMPLIANT WITH HIS MEDS.DENIES SI/HI BUT FREQUENT CHECKS MADE TO HIS ROOM TO ENSURE SAFETY.DENIES PAIN OR DISCOMFORT. WILL CONTINUE TO MONITOR.
--- NOTE | 2018-05-19 06:51 | NUR ---
SLEPT FOR APPROX. 6HRS.COMPLIANT WITH CARE.
[2018-05-19] MEDS: PANTOPRAZOLE SODIUM 40 MG TABLET.DR PO SCH (06:55)
[2018-05-19 07:30] VITALS: BP 112/72
[2018-05-19] MEDS: DIVALPROEX ER 500 MG TAB.SR.24H PO SCH ×2 (09:03→21:18)
[2018-05-19] MEDS: SERTRALINE HCL 50 MG TABLET PO SCH (09:03)
[2018-05-19] MEDS: QUETIAPINE FUMARATE 25 MG TABLET PO SCH (09:04)
--- NOTE | 2018-05-19 13:04 | NUR ---
Denies pain and discomfort. Able to express needs. No SI, hallucinations, or delusions. Compliant with all his medical care/meds and diet. Amculates with steady gait. will monitor.
[2018-05-19 15:49] VITALS: BP 90/66
[2018-05-19] MEDS: QUETIAPINE FUMARATE 100 MG TABLET PO SCH (21:18)
[2018-05-19] MEDS: MAGNESIUM OXIDE 400 MG TABLET PO SCH (21:18)
[2018-05-19 21:55] VITALS: BP 128/80
[2018-05-20] MEDS: PANTOPRAZOLE SODIUM 40 MG TABLET.DR PO SCH (06:37)
[2018-05-20 07:30] VITALS: BP_SYST 122; BP_SYST 124; BP_DIAS 67; BP_DIAS 88
[2018-05-20] MEDS: SERTRALINE HCL 50 MG TABLET PO SCH (08:20)
[2018-05-20] MEDS: QUETIAPINE FUMARATE 25 MG TABLET PO SCH ×3 (08:20→16:11)
[2018-05-20] MEDS: DIVALPROEX ER 500 MG TAB.SR.24H PO SCH ×2 (08:20→20:19)
--- NOTE | 2018-05-20 09:39 | NUR ---
Seroquel 25mg not given, already received morning dose of seroquel
[2018-05-20 15:36] VITALS: BP 115/79
--- NOTE | 2018-05-20 17:00 | NUR ---
Pt very calm and cooperative all day. No suicidal ideology noted. Pt eats at the dining area all meal time.
[2018-05-20 20:00] VITALS: BP 128/82
[2018-05-20] MEDS: MAGNESIUM OXIDE 400 MG TABLET PO SCH (20:19)
[2018-05-20] MEDS: QUETIAPINE FUMARATE 100 MG TABLET PO SCH (20:19)
[2018-05-21] MEDS: PANTOPRAZOLE SODIUM 40 MG TABLET.DR PO SCH (06:17)
[2018-05-21 07:30] VITALS: BP 125/77
[2018-05-21] MEDS: QUETIAPINE FUMARATE 25 MG TABLET PO SCH ×2 (09:42→16:42)
[2018-05-21] MEDS: DIVALPROEX ER 500 MG TAB.SR.24H PO SCH ×2 (09:42→20:09)
[2018-05-21] MEDS: SERTRALINE HCL 50 MG TABLET PO SCH (09:43)
[2018-05-21 15:23] VITALS: BP 139/80
--- NOTE | 2018-05-21 17:00 | NUR ---
PT HAS BEEN VERY COOPERATIVE ALL MORNING. ALERT AND ORIENTEDX3. ATE BREAKFAST AND LUNCH IN THE DINING AREA AND HAS BEEN WATCHING TV ALL MORNING. NO APPARENT DISTRESS, NO SI/VH NOTED, PT HAS SOME JITTERY MOMENT ON BOTH HANDS BUT CONTROLLED BY MEDICATION. PT IS ANTICIPATING TO GO HOME TOMORROW. CONDITION HAS BEEN STABLE. VERY COOPERATIVE AND EATING WELL.
[2018-05-21 19:30] VITALS: BP 111/75
[2018-05-21] MEDS: QUETIAPINE FUMARATE 100 MG TABLET PO SCH (20:09)
[2018-05-21] MEDS: MAGNESIUM OXIDE 400 MG TABLET PO SCH (20:09)
[2018-05-21] MEDS: ZOLPIDEM 5 MG TABLET PO PRN (22:41)
[2018-05-22] MEDS: PANTOPRAZOLE SODIUM 40 MG TABLET.DR PO SCH (06:12)
[2018-05-22 07:30] VITALS: BP 127/83
[2018-05-22 07:47] LABS: BILIRUBIN,TOTAL 0.4 mg/dL (0.2-1.0); MAGNESIUM 1.8 mg/dL (1.8-2.4); PHOSPHOROUS 3.7 mg/dL (2.5-4.9); POTASSIUM 4.1 mmol/L (3.5-5.1); TOTAL PROTEIN, SERUM 7.2 g/dL (6.4-8.2)
[2018-05-22 08:09] LABS: BASOPHILS % (AUTO) 0.9 % (0.0-2.0); EOSINOPHILS # (AUTO) 0.2 K/uL (0.0-0.7); EOSINOPHILS % (AUTO) 3.4 % (0.0-7.0); HEMATOCRIT 33.3 % (36.7-47.1); HEMOGLOBIN 11.4 g/dL (12.5-16.3); LYMPHOCYTES # (AUTO) 1.8 K/uL (20.0-40.0); LYMPHOCYTES % (AUTO) 38.2 % (20.5-51.5); MEAN CORPUSCULAR HEMOGLOBIN 35.3 uug (23.8-33.4); MEAN CORPUSCULAR HGB CONC 34 g/dL (32.5-36.3); MEAN CORPUSCULAR VOLUME 103.4 fL (73.0-96.2); MONOCYTES # (AUTO) 0.4 K/uL (2.0-10.0); MONOCYTES % (AUTO) 9.2 % (0.0-11.0); NEUTROPHILS # (AUTO) 2.2 K/uL (1.8-8.9); NEUTROPHILS % (AUTO) 48.3 % (38.5-71.5); PLATELET COUNT (AUTO) 230 K/uL (152-348); RED BLOOD CELL COUNT(AUTO) 3.22 MIL/uL (4.06-5.63); WHITE BLOOD COUNT (AUTO) 4.6 K/uL (3.6-10.2)
--- NOTE | 2018-05-22 08:22 | NUR ---
Discharge Note: Patient will be discharged to [facility] [[address] [place] [address]; ] via ambulance. Spoke with Jose and NICK at the facility who report they are ready to accept the patient today. Spoke with patients Massage Operator, Dorie Jimenes ([phone]) who is aware and agreeable with discharge plans. Patient is alert and oriented x4, denies SI/HI, and is aware and agreeable with discharge plans. Patient will follow-up at the facility with Dr. Petersen (Blast Setter) and Dr. Redd (Psychiatrist).
[2018-05-22] MEDS: DIVALPROEX ER 500 MG TAB.SR.24H PO SCH (09:25)
[2018-05-22] MEDS: QUETIAPINE FUMARATE 25 MG TABLET PO SCH (09:25)
[2018-05-22] MEDS: SERTRALINE HCL 50 MG TABLET PO SCH (09:25)
[2018-05-22] MEDS: LORAZEPAM 1 MG TABLET PO PRN (12:19)
== END 2018-05-22 13:30 | DRG 885 ==
LOC: ER 00:26 → GPS 03:55
PROVIDERS: ADMIT Psychiatry & Neurology Psychiatry; ATTEND Internal Medicine
DX: F31.5 Bipolar disorder, current episode depressed, severe, with psychotic features (principal); E53.8 Deficiency of other specified B group vitamins; K21.9 Gastro-esophageal reflux disease without esophagitis; K64.9 Unspecified hemorrhoids; D53.9 Nutritional anemia, unspecified; G40.909 Epilepsy, unspecified, not intractable, without status epilepticus; E11.9 Type 2 diabetes mellitus without complications; E78.5 Hyperlipidemia, unspecified; Z79.899 Other long term (current) drug therapy; Z79.84 Long term (current) use of oral hypoglycemic drugs
CPT/HCPCS: 36415; 71045; 80164; 83735; 84100; 84443; 85025; 93005; A4663